=== PATIENT | female | born 1950 | race Caucasian/White ===

== ENCOUNTER → 2016-10-19 | Outpatient (CLI) | payer MEDICARE, OTHER ==
[~2016-10-19] MED LIST: BACTRIM 400 MG-1 TAB PO; BACTRIM DS 8001 TA1 PO; CIPROFLOXACIN500 MG PO; COREG25 MG PO; Coumadin10 MG PO; DIOVAN HCT 12.51 TA1 PO; GABAPENTIN600 MG PO; GABAPENTIN800 MG PO; HYDR25T PO; LOPRESSOR100 MG PO; MELOXICAM7.5 MG PO; NORCO 325 MG-101 TAB PO; TRAMADOL HCL50 MG PO; VENTOLIN H0.09 MG/AC INH; XANAX0.5 MG PO; ZOLOFT50 MG PO
--- NOTE | ~2016-10-19 | PR ---
[place], [place] PROGRESS NOTE NAME: LAVONNE DOWNING [facility] #: [id number] UNIT #: [id number] ROOM: DOCTOR: ZOHAIB GeorgeDUKE BIRTHDATE: [birth year] DOS: 10/19/2016 CHIEF COMPLAINT: Followup of left lower extremity ulcerations. HISTORY OF PRESENT ILLNESS: The location of the wound is the left calf and left anterior leg. The quality is secondary to trauma, wound dehiscence, venous insufficiency, severe lymphedema, morbid obesity and hematoma. The severity is moderate to severe. Duration is approximately 15 weeks. Timing is after she suffered a hematoma and avulsion injury with postop wound dehiscence, large amount of necrotic tissue present. She has a lot of difficulty ambulating secondary to her severe osteoarthritis and obesity. We had tried an Unna boot on her last week; however, she said she could only keep it on for 1 day and had to have it removed the same night. She removed it because it was so uncomfortable, she just could not get her leg in a comfortable position and they did notice that there was increase in the size of the wound of the left anterior leg from before and that wound had been healing quite nicely and was almost closing, however it was noted to be quite large. It is possible that the collagen dressing adhere to it and was possibly caused some tearing of the skin when the dressing was removed, they are not sure if it was from that or from the Unna boot. In any case, she has not been able to use the Unna boot since then. She has no other specific complaints. She continues to have some drainage with the left calf wound. There is really no significant amount of pain. OBJECTIVE: Her vital signs are stable. Blood pressure is 164/90, pulse of 68, respirations 18 and temperature is 98.7. The wound on the anterior leg is measuring quite a lot bigger at 6.8 x 5 x 0.1. It does appear to be related to trauma, possibly from the dressing being sticking to the wound and the surrounding tissue or perhaps irritation from the Unna boot, it is really not clear to me, but it is quite a bit bigger, but fairly superficial. There is no visible necrotic tissue present on that area. There is no sign of cellulitis or purulence or tenderness. The left posterior calf wound is measuring a lot smaller at 2.4 x 3 x 0.1. There is a moderate amount of fibrin slough. There is some slight hypergranulation tissue noted. The surrounding skin looks a lot better, has much improved as far as the excoriation and dry skin. It does appear to be much more healthy appearing. This area was debrided. Fibrin slough and subcutaneous tissue was removed. The patient tolerated the debridement well. Curette was utilized. Cetacaine spray was used for topical anesthesia. Post-debridement measurements are unchanged. Bleeding was controlled with pressure. ASSESSMENT AND PLAN: Chronic left leg ulcerations, the left calf definitely is improving; however, she cannot tolerate the Unna boot and so we will be unable to use it, so I would continue with collagen silver dressing and use Adaptic underneath it to help prevent trauma to the wound and the surrounding skin on both of these wounds for now and have her follow up in one week. Home health is going to be changing the dressing as well and I did advise her to try to keep her legs elevated when she can and will use a Tubigrip for now for compression that is about all that we can use at this point. Followup is in one week. [place], [place] PROGRESS NOTE NAME: LAVONNE DOWNING UNIT #: [id number] ROOM: DOCTOR: DUKE PENNY M.D. BIRTHDATE: [birth year] DUKE PENNY MD CM:JENARO [id number] DUKE PENNY M.D. 10/19/16 1401 interface
== END ==
LOC: WOUNDCARE 01:32
DX: T81.31XD Disruption of external operation (surgical) wound, not elsewhere classified, subsequent encounter (principal); L97.222 Non-pressure chronic ulcer of left calf with fat layer exposed; I87.2 Venous insufficiency (chronic) (peripheral); E66.01 Morbid (severe) obesity due to excess calories; M19.90 Unspecified osteoarthritis, unspecified site; Y83.9 Surgical procedure, unspecified as the cause of abnormal reaction of the patient, or of later complication, without mention of misadventure at the time of the procedure

== ENCOUNTER → 2016-10-25 | Outpatient (CLI) | payer MEDICARE, OTHER ==
--- NOTE | ~2016-10-25 | PR ---
[place], [place] PROGRESS NOTE NAME: LAVONNE DOWNING [facility] #: [id number] UNIT #: [id number] ROOM: DOCTOR: ZOHAIB GeorgeDUKE BIRTHDATE: [birth year] DOS: 10/25/2016 CHIEF COMPLAINT: Followup of left lower extremity ulcerations. HISTORY OF PRESENT ILLNESS: The location of the wounds are the left calf and left anterior leg. The quality is secondary to trauma, wound dehiscence, venous insufficiency, severe lymphedema, morbid obesity, and hematoma. She has been following up in the [facility] for several weeks now, 14 weeks. She has severe debility, ambulating, and is very sedentary due to this and severe osteoarthritis the wounds have been steadily improving gradually and we have made a lot of progress with that; however last week, she had issues with compression. She had an Unna boot on which she only tolerated for one day and had to remove it because of severe discomfort in her leg and she had noticeably increased wound size afterwards in the anterior one. The left calf wound was still healing fairly well. In any case, she comes in today with complaints of increased drainage from both of the leg wounds. She does not have any pain or fevers or chills, but the wounds have gotten much bigger in comparison to the last week. PHYSICAL EXAMINATION: VITAL SIGNS: Stable. Temperature is 98.2, pulse is 80, respirations 18, blood pressure is 154/90. The wound on her anterior lower extremity has tremendously increased in size to 9.1 x 10.5 x 0.1. There is really no overt necrotic tissue. There is a lot more erythema present and around the area and that was not present last week. There is some minimal adherent slough present as well as some dressing material stuck into the wound base. In the left calf, wound is measuring 2.5 x 4.1, it is also bigger in size and 0.1 in depth. There is some hypergranulation tissue and a moderate amount of fibrin slough noted. It is not acutely tender. Debridement was done of the calf wound. This was an excisional debridement. The tissue removed was fibrin slough, Biofilm as well as subcutaneous tissue. Some of the hypergranulation tissue was attempted to be removed. There is still some left after debridement. Post-debridement measurements are unchanged. Silver nitrate was used for the distal part of the hypergranulated area to see if that would help with the hypergranulation. A post-debridement swab culture was taken with the Sanders technique. The left anterior leg wound was debrided. It was a selective debridement. The tissue removed was just minimal nonviable fibrin slough and some adherent dressing material. This was removed with forceps and scissors. All the post-debridement measurements were unchanged. ASSESSMENT AND PLAN: Worsening leg wounds, likely there is probably some wound infection going on. Culture was taken today. We will start the patient on doxycycline 100 twice a day. I would like her to use Iodosorb for now. SHE HAS AN IODINE ALLERGY, but not to topicals. SHE IS ALLERGIC TO CONTRAST MATERIAL. So we tried this with Maxorb and have her change it every other day. We will use a 2 layer Tubigrip, hopefully she can tolerate this at least to help with her tremendous amount of edema. She continues to have a large amount of edema. The patient is to follow up with us in one week. She does have home health to help with dressing changes. I wanted to add that she does take Coumadin and she is going to get her INR checked this Sunday. [place], [place] PROGRESS NOTE NAME: LAVONNE DOWNING UNIT #: [id number] ROOM: DOCTOR: DUKE PENNY M.D. BIRTHDATE: [birth year] DUKE PENNY MD CM:JENARO [id number] DUKE PENNY M.D. 10/26/16 0457 interface
== END | disposition home or self-care (01) ==
LOC: WOUNDCARE 00:46
DX: T81.31XD Disruption of external operation (surgical) wound, not elsewhere classified, subsequent encounter (principal); E11.622 Type 2 diabetes mellitus with other skin ulcer; L97.821 Non-pressure chronic ulcer of other part of left lower leg limited to breakdown of skin; L97.221 Non-pressure chronic ulcer of left calf limited to breakdown of skin; I87.2 Venous insufficiency (chronic) (peripheral); I89.0 Lymphedema, not elsewhere classified; E66.01 Morbid (severe) obesity due to excess calories; Y83.9 Surgical procedure, unspecified as the cause of abnormal reaction of the patient, or of later complication, without mention of misadventure at the time of the procedure

== ENCOUNTER → 2016-11-01 | Outpatient (CLI) | payer MEDICARE, OTHER ==
--- NOTE | ~2016-11-01 | PR ---
[place], [place] PROGRESS NOTE NAME: LAVONNE DOWNING [facility] #: [id number] UNIT #: [id number] ROOM: DOCTOR: ZOHAIB GeorgeDUKE BIRTHDATE: [birth year] DOS: 11/01/2016 This is a wound care followup. CHIEF COMPLAINT: Followup of left lower extremity ulcerations. HISTORY OF PRESENT ILLNESS: The locations of the wounds are the left calf and the left anterior leg. The quality is secondary to trauma, wound dehiscence, venous insufficiency, severe lymphedema, morbid obesity and initially started out as a hematoma that ulcerated and became a very large chronic wound. The wound of the calf has been steadily improving; however, last week, we had some noticeable increase in size of the wound and there was hypergranulation tissue noted. Debridement was done last week with post-debridement culture was obtained. This was positive for multidrug resistant Staph aureus sensitive to Bactrim and Zyvox orally as well as rifampin orally, but no other oral antibiotics except for vancomycin was reported. There was also a new area on the anterior calf that was getting larger as well and that was noted to be increasing in size. It had been steadily improving and getting quite small. However, it just seemed to have gotten worse after Unna boot was placed. She had had Unna boot on for 1 week and it seemed that this really exacerbated it and it became quite large in surface area as well as having a lot of drainage. It remains superficial however. She comes in today. We had started her on empiric doxycycline last week, but she had a reaction to it, which caused a rash and we started her on Iodosorb. She does not tolerate any compression other than a Tubigrip at the moment. The wound on her anterior leg is definitely getting bigger in size and she and her state that they do not have enough dressings as it need frequent dressing changes, but they have been changing it fairly frequently. thinks that it probably needs at least twice a day changed. No fevers or chills or pain is noted at this time. OBJECTIVE: VITAL SIGNS: Shows a blood pressure of 134/80, pulse of 76, respirations 18, temp is 98.4. WOUND EXAMINATION: The wound of the left anterior leg is measuring bigger at 20 x 15 x 0.1. There is really no necrotic tissue. It is moderately erythematous, but it is definitely bigger in dimension. It remains fairly superficial. The wound on the left calf is measuring slightly smaller at 2.5 x 3.7 x 0.1. There is a moderate amount of fibrin slough present in the base of the wound. There is still some maceration noted on the posterior aspect of the calf. Debridement was done of the posterior calf wound. The tissue removed was fibrin slough and subcutaneous tissue. There was a minimal to moderate amount of bleeding. Post-debridement measurements are unchanged. Instrument utilized was a curette. A swab culture was obtained of one of the areas of the left anterior leg wound, which had some active bleeding. This was performed by using the Sanders technique. ASSESSMENT AND PLAN: Worsening leg wounds, likely secondary to possible infection the fact that the wounds are increasing in size and there are large amounts of drainage, I discussed with the patient that we should consider treatment. I am concerned about the Bactrim use; however, and her being on [place], [place] PROGRESS NOTE NAME: LAVONNE DOWNING UNIT #: [id number] ROOM: DOCTOR: DUKE PENNY M.D. BIRTHDATE: [birth year] Coumadin. She says she will get her Coumadin checked on Sunday. She has a pharmacist who manages her Coumadin. She is going to give me the number this afternoon, so I can touch base with her and let her know that the patient will be on antibiotics that may interact with Coumadin. She will need to have her INR checked at least twice a week while she is on antibiotics, possibly more than that if needed. So, the patient is aware of possible drug interaction. She says she has been on Bactrim before in the past, but does not recall if she had been on Coumadin with it or, but has not had a problem with it. In the meantime, the Iodosorb is not helping, so we will not use that and go with the Maxorb silver for now. I will also have her use Dakin's to cleanse the leg with during dressing changes and will use OptiLock as a secondary dressing as I think this might be a little bit more absorptive than the ABD pads at least for now. Followup is early next [place], will use Tubigrip for compression. DUKE PENNY MD CM:JENARO [phone] DUKE PENNY M.D. 11/01/162052 interface
== END ==
LOC: WOUNDCARE 03:50
DX: T81.31XD Disruption of external operation (surgical) wound, not elsewhere classified, subsequent encounter (principal); L97.222 Non-pressure chronic ulcer of left calf with fat layer exposed; L97.821 Non-pressure chronic ulcer of other part of left lower leg limited to breakdown of skin; I87.2 Venous insufficiency (chronic) (peripheral); I89.0 Lymphedema, not elsewhere classified; E66.01 Morbid (severe) obesity due to excess calories; Y83.9 Surgical procedure, unspecified as the cause of abnormal reaction of the patient, or of later complication, without mention of misadventure at the time of the procedure

== ENCOUNTER 2017-04-03 10:36 | Emergency (ER) | payer MEDICARE ==
[~2017-04-03] VITALS: Wt 136.1 kg
[2017-04-03 10:44] VITALS: BP 182/104
[2017-04-03 11:08] LABS: BASO % 0.2 % (0.0-1.0); HEMATOCRIT 35.7 % (37.0-47.0); HEMOGLOBIN 10.4 g/dl (12.0-16.0); IG # 0.1 10*3/uL (0.0-0.1); LYMPH # 1.4 10*3/uL (1.3-4.4); LYMPH % 27.3 % (27.0-41.0); MEAN CELL VOLUME 81.7 fl (81.0-99.0); MEAN CORPUSCULAR HGB 23.8 pg (27.0-31.0); MEAN CORPUSCULAR HGB CONC 29.1 g/dl (33.0-37.0); MEAN PLATELET VOLUME 9.4 fl (9.6-12.3); MONO # 0.7 10*3/uL (0.1-1.0); MONO % 12.4 % (3.0-9.0); NEUT # 3.1 10*3/uL (2.3-7.9); NEUT % 59.1 % (47.0-73.0); PLATELET COUNT AUTOMATED 231 10*3/uL (130-400); RED BLOOD COUNT 4.37 10*6/uL (4.10-5.10); RED CELL DISTRI WIDTH 15.8 % (0-14.5); WHITE BLOOD COUNT 5.2 10*3/uL (4.8-10.8)
[2017-04-03 11:17] LABS: INTERNATIONAL NORM RATIO 1.4 (2.0-3.5); PROTHROMBIN TIME 15.5 SECONDS (9.0-12.4)
[2017-04-03 11:43] LABS: ALBUMIN 2.8 gm/dl (3.1-4.5); ALKALINE PHOSPHATASE 76 U/L (45-117); BILIRUBIN, TOTAL 0.3 mg/dl (0.2-1.0); BUN 28 mg/dl (7-24); C-REACTIVE PROTEIN 5.87 MG/DL (0-0.3); CARBON DIOXIDE 32 mmol/L (21-32); CHLORIDE 102 mmol/L (98-107); CPK 26 U/L (26-192); EST GLOM FILT AFRICAN AMERICAN 45 ml/min; GLUCOSE 143 mg/dL (65-99); MAGNESIUM 2.2 mg/dL (1.5-2.1); POTASSIUM 4.7 mmol/L (3.5-5.1); SGOT/AST 399 IU/L (3-35); SGPT/ALT 256 U/L (12-78); SODIUM 144 mmol/L (136-145)
[2017-04-03 11:44] LABS: CKMB < 0.5 ng/ml (0.5-3.6)
[2017-04-03 11:45] LABS: TROPONIN I 0.549 ng/ml (<0.045)
[2017-04-03 11:51] LABS: BILIRUBIN NEGATIVE (NEGATIVE); BLOOD TRACE-LYSED (NEGATIVE); CLARITY CLOUDY (CLEAR); COLOR YELLOW (YELLOW); GLUCOSE NEGATIVE (NEGATIVE); KETONE NEGATIVE (NEGATIVE); LEUKO ESTERASE NEGATIVE (NEGATIVE); NITRITE NEGATIVE (NEGATIVE); PH 5.5 (5.0-9.0); PROTEIN 2+ (NEGATIVE); SPECIFIC GRAVITY >= 1.030 (1.005-1.030)
[2017-04-03 12:16] VITALS: BP 133/91
[2017-04-03] MEDS ORDERED: DEXAMETHASONE/TO5 ML OPH (12:20)
[2017-04-03] MEDS ORDERED: SERTRALINE HYDR50 MG PO (12:20)
[2017-04-03 12:52] LABS: BACTERIA 2+; EPITHELIAL CELLS 15-20; MUCOUS 2+; URINE REFLEX COMMENT YES (NO)
[2017-04-03 14:32] VITALS: BP 133/83
[2017-04-03 15:39] VITALS: BP 175/98
[2017-04-03 16:54] VITALS: BP 175/100
== END 2017-04-03 17:19 | disposition short-term general hospital (02) ==
LOC: ED 10:36 → EDHOLD 14:40 → ICCU 14:59 → EDHOLD 14:59 → ED 17:19
PROVIDERS: Emergency Medicine
DX: A41.9 Sepsis, unspecified organism (principal); R65.20 Severe sepsis without septic shock; N17.9 Acute kidney failure, unspecified; J96.01 Acute respiratory failure with hypoxia; G93.41 Metabolic encephalopathy; K81.9 Cholecystitis, unspecified; I10 Essential (primary) hypertension; Z88.6 Allergy status to analgesic agent; Z79.899 Other long term (current) drug therapy; Z79.02 Long term (current) use of antithrombotics/antiplatelets

== ENCOUNTER 2017-09-22 19:23 | Emergency (ER) | payer MEDICARE ==
[~2017-09-22] VITALS: Ht 177.8 cm; Wt 127.0 kg
[~2017-09-22 19:23] MED LIST changes: +DEXAMETHASONE/TO5 ML OPH; +SERTRALINE HYDR50 MG PO
[2017-09-22 20:14] LABS: BASO # 0.1 10*3/uL (0.0-0.1); BASO % 0.7 % (0.0-1.0); EOS # 0.4 10*3/uL (0.0-0.4); EOS % 5.7 % (1.0-4.0); HEMATOCRIT 32.9 % (37.0-47.0); LYMPH # 1.3 10*3/uL (1.3-4.4); LYMPH % 17.1 % (27.0-41.0); MEAN CELL VOLUME 78.1 fl (81.0-99.0); MEAN CORPUSCULAR HGB 23.8 pg (27.0-31.0); MEAN CORPUSCULAR HGB CONC 30.4 g/dl (33.0-37.0); MONO # 0.7 10*3/uL (0.1-1.0); MONO % 9.5 % (3.0-9.0); NEUT # 5.1 10*3/uL (2.3-7.9); NEUT % 66.5 % (47.0-73.0); PLATELET COUNT AUTOMATED 307 10*3/uL (130-400); RED BLOOD COUNT 4.21 10*6/uL (4.10-5.10); RED CELL DISTRI WIDTH 16.6 % (0-14.5); WHITE BLOOD COUNT 7.7 10*3/uL (4.8-10.8)
[2017-09-22 20:30] LABS: ALBUMIN 2.9 gm/dl (3.1-4.5); ALKALINE PHOSPHATASE 98 U/L (45-117); BUN 16 mg/dl (7-24); CHLORIDE 102 mmol/L (98-107); CREATININE 1.08 mg/dL (0.55-1.02); SGOT/AST 13 IU/L (3-35); SGPT/ALT 12 U/L (12-78); SODIUM 137 mmol/L (136-145); TOTAL PROTEIN 7.6 gm/dL (6.4-8.2)
[2017-09-22 20:41] LABS: ACT PARTIAL THROMBO TIME 51.5 SECONDS (20.8-31.5)
[2017-09-22 20:45] LABS: INTERNATIONAL NORM RATIO 4.8 (2.0-3.5)
== END 2017-09-22 22:16 | disposition home or self-care (01) ==
LOC: ED 19:23
PROVIDERS: Nurse Practitioner
DX: R03.0 Elevated blood-pressure reading, without diagnosis of hypertension (principal); Z88.6 Allergy status to analgesic agent; Z91.040 Latex allergy status; Z91.041 Radiographic dye allergy status; Z79.899 Other long term (current) drug therapy; Z90.710 Acquired absence of both cervix and uterus

== ENCOUNTER 2017-11-03 23:03 | Emergency (ER) | payer MEDICARE ==
[~2017-11-03] VITALS: Wt 127.0 kg
--- NOTE | ~2017-11-03 | EKG ---
[place], [place] ELECTROCARDIOGRAM REPORT NAME: LAVONNE DOWNING UNIT #: [id number] ROOM: DOCTOR: SERJIO BLISS MD BIRTHDATE: [birth year] DOS: 11/04/2017 TIME: 008 hours. Normal sinus rhythm at 67 beats per minute. J-point elevation is noted. The minimal criteria for LVH is present. No previous tracing is available for comparison. SERJIO BLISS MD CM:EKGRPT:ELECTROCARDIOGRAM REPORT [id number] SERJIO BLISS MD
[2017-11-03 23:38] LABS: BASO # 0.1 10*3/uL (0.0-0.1); BASO % 0.7 % (0.0-1.0); EOS # 0.3 10*3/uL (0.0-0.4); EOS % 4.6 % (1.0-4.0); HEMATOCRIT 34.6 % (37.0-47.0); HEMOGLOBIN 10.4 g/dl (12.0-16.0); LYMPH # 1.4 10*3/uL (1.3-4.4); LYMPH % 19.2 % (27.0-41.0); MEAN CELL VOLUME 79.9 fl (81.0-99.0); MEAN CORPUSCULAR HGB CONC 30.1 g/dl (33.0-37.0); MEAN PLATELET VOLUME 9.4 fl (9.6-12.3); MONO # 0.7 10*3/uL (0.1-1.0); MONO % 9.5 % (3.0-9.0); NEUT # 4.7 10*3/uL (2.3-7.9); NEUT % 65.6 % (47.0-73.0); PLATELET COUNT AUTOMATED 216 10*3/uL (130-400); RED BLOOD COUNT 4.33 10*6/uL (4.10-5.10); RED CELL DISTRI WIDTH 16.4 % (0-14.5); WHITE BLOOD COUNT 7.1 10*3/uL (4.8-10.8)
[2017-11-03 23:48] LABS: ACT PARTIAL THROMBO TIME 30.4 SECONDS (20.8-31.5); INTERNATIONAL NORM RATIO 1.4 (2.0-3.5)
[2017-11-03 23:55] LABS: ALBUMIN 2.9 gm/dl (3.1-4.5); ALKALINE PHOSPHATASE 112 U/L (45-117); BUN 23 mg/dl (7-24); CHLORIDE 104 mmol/L (98-107); CREATININE 1.09 mg/dL (0.55-1.02); POTASSIUM 4.1 mmol/L (3.5-5.1); SGOT/AST 13 IU/L (3-35); SGPT/ALT 12 U/L (12-78); SODIUM 141 mmol/L (136-145); TOTAL PROTEIN 7.2 gm/dL (6.4-8.2)
[2017-11-04] LABS: TROPONIN I < 0.015 ng/ml (<0.045)
[2017-11-04 00:46] LABS: BILIRUBIN NEGATIVE (NEGATIVE); BLOOD 3+ (NEGATIVE); CLARITY SL CLOUDY (CLEAR); COLOR YELLOW (YELLOW); GLUCOSE NEGATIVE (NEGATIVE); KETONE NEGATIVE (NEGATIVE); LEUKO ESTERASE 2+ (NEGATIVE); NITRITE POSITIVE (NEGATIVE); PH 6.5 (5.0-9.0); UROBILINOGEN 0.2 E.U./dl (0.2-1.0)
[2017-11-04 01:00] LABS: RBC 21-30 rbc/hpf (0-2); WBC 31-40 wbc/hpf (0-5)
[2017-11-04 01:02] LABS: BACTERIA 3+
[2017-11-04] MEDS ORDERED: MACROBID100 M1 PO (02:11)
== END 2017-11-04 03:00 | disposition home or self-care (01) ==
LOC: ED 23:03
PROVIDERS: Emergency Medicine Emergency Medical Services
DX: I10 Essential (primary) hypertension (principal); N39.0 Urinary tract infection, site not specified; M79.7 Fibromyalgia; Z90.710 Acquired absence of both cervix and uterus; Z98.890 Other specified postprocedural states; Z79.899 Other long term (current) drug therapy; Z79.01 Long term (current) use of anticoagulants; Z88.5 Allergy status to narcotic agent; Z91.040 Latex allergy status

== ENCOUNTER 2017-12-28 22:35 | Emergency (ER) | payer MEDICARE, OTHER ==
[~2017-12-28] VITALS: Ht 170.1 cm; Wt 127.0 kg
[~2017-12-28 22:35] MED LIST changes: +MACROBID100 M1 PO
[2017-12-28 23:28] LABS: BASO % 0.6 % (0.0-1.0); EOS # 0.2 10*3/uL (0.0-0.4); EOS % 3.6 % (1.0-4.0); HEMATOCRIT 37.2 % (37.0-47.0); HEMOGLOBIN 11.3 g/dl (12.0-16.0); LYMPH # 1.2 10*3/uL (1.3-4.4); LYMPH % 22.7 % (27.0-41.0); MEAN CELL VOLUME 80.3 fl (81.0-99.0); MEAN CORPUSCULAR HGB 24.4 pg (27.0-31.0); MEAN CORPUSCULAR HGB CONC 30.4 g/dl (33.0-37.0); MEAN PLATELET VOLUME 9.4 fl (9.6-12.3); MONO # 0.6 10*3/uL (0.1-1.0); MONO % 11.1 % (3.0-9.0); NEUT # 3.1 10*3/uL (2.3-7.9); NEUT % 61.4 % (47.0-73.0); PLATELET COUNT AUTOMATED 188 10*3/uL (130-400); RED BLOOD COUNT 4.63 10*6/uL (4.10-5.10); WHITE BLOOD COUNT 5.1 10*3/uL (4.8-10.8)
[2017-12-28 23:35] LABS: BILIRUBIN NEGATIVE (NEGATIVE); BLOOD 1+ (NEGATIVE); CLARITY SL CLOUDY (CLEAR); COLOR YELLOW (YELLOW); GLUCOSE NEGATIVE (NEGATIVE); KETONE NEGATIVE (NEGATIVE); LEUKO ESTERASE 1+ (NEGATIVE); NITRITE POSITIVE (NEGATIVE); PH 6.5 (5.0-9.0); UROBILINOGEN 0.2 E.U./dl (0.2-1.0)
[2017-12-28 23:35] LABS: INTERNATIONAL NORM RATIO 1.6 (2.0-3.5)
[2017-12-28 23:40] LABS: BACTERIA 4+
[2017-12-28 23:41] LABS: WBC 31-40 wbc/hpf (0-5)
[2017-12-28 23:43] LABS: ALBUMIN 3.1 gm/dl (3.1-4.5); ALKALINE PHOSPHATASE 128 U/L (45-117); BUN 17 mg/dl (7-24); CHLORIDE 101 mmol/L (98-107); CREATININE 0.94 mg/dL (0.55-1.02); LIPASE 73 U/L (73-393); SGOT/AST 11 IU/L (3-35); SGPT/ALT 12 U/L (12-78); SODIUM 139 mmol/L (136-145); TOTAL PROTEIN 7.4 gm/dL (6.4-8.2)
[2017-12-28 23:44] LABS: TROPONIN I < 0.015 ng/ml (<0.045)
[2017-12-29] MEDS ORDERED: CEFUROXIME AXE250 MG PO (01:02)
== END 2017-12-29 01:06 | disposition home or self-care (01) ==
LOC: ED 22:35
PROVIDERS: Emergency Medicine Emergency Medical Services
DX: I10 Essential (primary) hypertension (principal); N39.0 Urinary tract infection, site not specified; Z90.710 Acquired absence of both cervix and uterus; Z79.01 Long term (current) use of anticoagulants; Z88.5 Allergy status to narcotic agent; Z91.040 Latex allergy status

== ENCOUNTER 2018-09-29 19:48 | Emergency (ER) | payer MEDICARE ==
[~2018-09-29] VITALS: Ht 177.8 cm; Wt 127.0 kg
--- NOTE | ~2018-09-29 | EKG ---
[place], [place] ELECTROCARDIOGRAM REPORT NAME: LAVONNE DOWNING UNIT #: [id number] ROOM: DOCTOR: EPIPHANY DRAFT REPORT BIRTHDATE: [birth year] [facility] Test Date: 2018-09-29 Test Time: 20:17:43 Pat Name: LAVONNE DOWNING Department: Room: Gender: F Roofer Assistant: RINA : 1950 Requested By: JAVAD LR PA-C Order Number: [id number] Reading MD: James Lin MD Measurements Intervals [place] Rate: 70 P: 10 ID: [id number] QRS: 33 QRSD: 97 T: 60 QT: 415 QTc: 448 Interpretive Statements Sinus rhythm Electronically Signed On 09-30-2018 7:53:51 PST by James Lin MD CM:EKGRPT:ELECTROCARDIOGRAM REPORT [id number] JAVAD LR PA-C EPIPHANY DRAFT REPORT JAVAD LR PA-C
[~2018-09-29 19:48] MED LIST changes: +CEFUROXIME AXE250 MG PO
[2018-09-29 20:15] LABS: BASO # 0.1 10*3/uL (0.0-0.1); BASO % 0.8 % (0.0-1.0); EOS # 0.2 10*3/uL (0.0-0.4); EOS % 3.6 % (1.0-4.0); HEMATOCRIT 40.4 % (37.0-47.0); HEMOGLOBIN 12.5 g/dl (12.0-16.0); LYMPH # 1.2 10*3/uL (1.3-4.4); LYMPH % 17.5 % (27.0-41.0); MEAN CORPUSCULAR HGB 25.7 pg (27.0-31.0); MEAN CORPUSCULAR HGB CONC 30.9 g/dl (33.0-37.0); MONO # 0.6 10*3/uL (0.1-1.0); MONO % 8.3 % (3.0-9.0); NEUT # 4.6 10*3/uL (2.3-7.9); NEUT % 69.2 % (47.0-73.0); PLATELET COUNT AUTOMATED 201 10*3/uL (130-400); RED BLOOD COUNT 4.87 10*6/uL (4.10-5.10); WHITE BLOOD COUNT 6.6 10*3/uL (4.8-10.8)
[2018-09-29 20:32] LABS: ALBUMIN 3.1 gm/dl (3.1-4.5); ALKALINE PHOSPHATASE 155 U/L (45-117); BUN 16 mg/dl (7-24); CHLORIDE 99 mmol/L (98-107); CREATININE 1.13 mg/dL (0.55-1.02); POTASSIUM 4.1 mmol/L (3.5-5.1); SGOT/AST 10 IU/L (3-35); SGPT/ALT 13 U/L (12-78); SODIUM 138 mmol/L (136-145); TOTAL PROTEIN 7.2 gm/dL (6.4-8.2)
[2018-09-29 20:47] LABS: TROPONIN I < 0.015 ng/ml (<0.045)
[2018-09-29 20:59] LABS: BILIRUBIN NEGATIVE (NEGATIVE); BLOOD TRACE-INTACT (NEGATIVE); CLARITY CLOUDY (CLEAR); COLOR YELLOW (YELLOW); GLUCOSE NEGATIVE (NEGATIVE); KETONE NEGATIVE (NEGATIVE); LEUKO ESTERASE NEGATIVE (NEGATIVE); NITRITE NEGATIVE (NEGATIVE); SPECIFIC GRAVITY 1.015 (1.005-1.030); UROBILINOGEN 0.2 E.U./dl (0.2-1.0)
[2018-09-29 21:09] LABS: BACTERIA 1+; WBC 0-2 wbc/hpf (0-5)
[2018-09-29 21:19] LABS: ACT PARTIAL THROMBO TIME 36.7 SECONDS (20.8-31.5); INTERNATIONAL NORM RATIO 2.2 (2.0-3.5)
[2018-09-29] MEDS ORDERED: AMINOPHYLLIN200 MG PO (21:22)
== END 2018-09-29 21:21 | disposition home or self-care (01) ==
LOC: ED 19:48
PROVIDERS: Physician Assistant
DX: R35.0 Frequency of micturition (principal); I10 Essential (primary) hypertension; R30.0 Dysuria; R51 Headache; Z86.718 Personal history of other venous thrombosis and embolism; Z79.01 Long term (current) use of anticoagulants; Z88.5 Allergy status to narcotic agent; Z91.041 Radiographic dye allergy status; Z91.040 Latex allergy status; Z79.2 Long term (current) use of antibiotics; Z79.899 Other long term (current) drug therapy; Z90.710 Acquired absence of both cervix and uterus

== ENCOUNTER 2019-03-31 20:10 | Emergency (ER) | payer OTHER, MEDICARE ==
[~2019-03-31] VITALS: Ht 177.8 cm; Wt 148.3 kg
[~2019-03-31 20:10] MED LIST changes: +AMINOPHYLLIN200 MG PO
[2019-04-02] MEDS ORDERED: AUGMENTIN 875875 MG PO (17:11)
[2019-04-02] MEDS ORDERED: AMLODIPINE BESYL5 MG PO (17:12)
[2019-04-02] MEDS ORDERED: CLONIDINE HCL0.3 MG PO (17:13)
[2019-04-02] MEDS ORDERED: LISINOPRIL40 MG PO (17:13)
[2019-04-02] MEDS ORDERED: PAMELOR25 MG PO (17:22)
[2019-04-02] MEDS ORDERED: PREMARIN30 GM V (17:23)
[2019-04-02] MEDS ORDERED: TEARS NATURALE,15 ML OPH (17:24)
[2019-04-09] MEDS ORDERED: CEFTRIAXONE1 GM IJ (15:13)
== END 2019-04-01 00:30 | disposition home or self-care (01) ==
LOC: ED 20:10
DX: S70.01XA Contusion of right hip, initial encounter (principal); I10 Essential (primary) hypertension; J45.909 Unspecified asthma, uncomplicated; E66.01 Morbid (severe) obesity due to excess calories; Z88.6 Allergy status to analgesic agent; Z91.040 Latex allergy status; Z79.899 Other long term (current) drug therapy; Z79.01 Long term (current) use of anticoagulants; W01.0XXA Fall on same level from slipping, tripping and stumbling without subsequent striking against object, initial encounter; Y93.89 Activity, other specified; Y92.098 Other place in other non-institutional residence as the place of occurrence of the external cause; Y99.8 Other external cause status

== ENCOUNTER 2020-07-20 16:47 | Inpatient (IN) | payer MEDICARE, OTHER ==
[~2020-07-20] VITALS: Ht 177.8 cm; Wt 148.6 kg
--- NOTE | 2020-07-20 19:00 | NUR ---
REPORT OBTAINED FROM PRIOR RN. PT EDWIN SHEPHERD.
--- NOTE | 2020-07-20 19:45 | NUR ---
PT RESTING QUIETLY NO DISTRESS DENIES PAIN.
--- NOTE | 2020-07-20 20:15 | NUR ---
ROOM ASSIGNMENT OBTAINED. PT RESTING QUIETLY NO DISTRESS BIPAP IN PLACE PER RESPIRATORY. NO ACUTE DISTRESS. RN TO GIVE BEDSIDE REPORT UPON TAKING PATIENT TO FLOOR
[2020-07-20 20:40] VITALS: BP 154/97
--- NOTE | 2020-07-20 20:40 | NUR ---
A 70, admitted to 5E, under the services of MIKY Kolb DO with a diagnosis of HYPOXIA. Chief complaint is SHORTNESS OF BREATH. Patient arrived via stretcher from ER. Monitor applied. Initial assessment completed. Vital signs taken and recorded. MIKY KOLB DO notified of admission to the unit. Orders received. See assessment for past medical history, medications and allergies. Patient and/or family oriented to unit. visitation policy reviewed. Clothing/patient valuable form completed. BENITEZ LYNN
--- NOTE | 2020-07-20 20:42 | NUR ---
PT TRANSPORTED TO FLOOR MONITORED
--- NOTE | 2020-07-20 21:31 | NUR ---
DR. VELOZ'S ANSWERING SERVICE NOTIFIED OF NEW CONSULT.
--- NOTE | 2020-07-20 21:36 | NUR ---
DR. SERRANO NOTIFIED OF CONSULT. ABG'S IN AM AND CHANGE BIPAP SETTINGS TO 25/07.
--- NOTE | 2020-07-21 07:51 | NUR ---
PODIATRY NOTIFIED OF CONSULT.
--- NOTE | 2020-07-21 08:50 | NUR ---
PRASHANTH SALAZAR TAKEN OFF LLE FOR SCHEDULED U/S. PODIATRY MADE AWARE.
--- NOTE | 2020-07-21 09:00 | NUR ---
PATIENT TAKEN OFF FLOOR FOR SCHEDULED U/S.
--- NOTE | 2020-07-21 15:35 | NUR ---
Dispensing Operator in to talk to patient. Patient states lives at HOME with AND SON. There are NO steps in the home. Physician: JUDITH [facility] Home health services: [facility] Patient's level of ADLs: MINIMAL ASSIST Patient has working utilities: YES DME: OXYGEN, CPAP, ELECTRIC WHEELCHAIR Follow-up physician's appointment after d/c: WILL BE MADE BY HOSPITALIST NURSE DIRECTOR ON DISCHARGE Does patient want to access PORTAL?: NO Discharge plan PT LIVES AT HOME WITH HER AND SON. STATES SHE HAS HOME OXYGEN, A CPAP, AND ELECTRIC WHEELCHAIR. SHE ALSO HAS [facility] SERVICES. STATES HER PLAN IS RETURN HOME WHEN MEDICALY STABLE WITH RESUMPTION OF [facility]. WILL CONTINUE TO FOLLOW. STATES HER FAMILY WILL TAKE HER HOME.. [place]
--- NOTE | 2020-07-21 16:00 | NUR ---
Patient resting quietly with no c/o discomfort. Respirations easy and regular. Vital signs stable. No overt distress. TITA TAYLOR
--- NOTE | 2020-07-21 16:44 | NUR ---
PT. WAS ON BIPAP FROM 1150 TO 1545. TOERATED WELL. PT. ON NC AT 3L.
--- NOTE | 2020-07-21 22:55 | NUR ---
Pt placed on BiPap 18/10 and FiO2 40%. Alarms on and audible.
--- NOTE | 2020-07-22 06:48 | NUR ---
DR. QUISPE NOTIFIED OF CRITICAL CARBON DIOXIDE LEVEL OF 43.
--- NOTE | 2020-07-22 08:11 | NUR ---
NOTIFIED REGARDING RECENT ABG RESULTS. NEW ORDERS RECEIVED.
--- NOTE | 2020-07-22 08:13 | NUR ---
RESPIRATORY THERAPIST INFORMED REGARDING OXYGEN CHECK ON ROOM AIR.
--- NOTE | 2020-07-22 08:34 | NUR ---
PULSE OX CHECKED ON ROOM AIR PER ORDER. POX 85% VIA ROOM AIR. 02 APPLIED VIA 3LNC. POX NOW 93%. WILL CONTINUE TO MONITOR. PATIENT TO BE TAKEN DOWN FOR SCHEDULED CXR.
--- NOTE | 2020-07-22 09:25 | NUR ---
IN TO SEE PATIENT.
--- NOTE | 2020-07-22 12:44 | NUR ---
PT STATES SHE WILL RETURN HOME WITH SON AND ON DISCHARGE. STATES SHE HAS ALL THE EQUIPMENT SHE NEEDS. WILL RESUME [facility] ON DISCHARGE. WILL CONTINUE TO FOLLOW.
--- NOTE | 2020-07-22 13:15 | NUR ---
PT PLACED ON BIPAP FOR AFTERNOON NAP. SYSTEM CHECKED AND FX'IN. RESPS REGULAR AND UNLABORED. PRIOR TO BIPAP, PT WAS ON RA (CANNULA ON BUT PRONGS NOT IN NOSTRILS) AND SPO2 WAS 82% ON RA. SPO2 INCREASED TO 91% ON 2 L NC PRIOT TO BIPAP.
--- NOTE | 2020-07-22 13:33 | NUR ---
BIPAP IN USE. PATIENT TOLERATING WELL.
--- NOTE | 2020-07-22 16:30 | NUR ---
PATIENT RESTING COMFORTABLY IN BED. NO DISTRESS NOTED. 02 IN USE VIA 3LNC. POX 95% VIA 3L. LUNGS DIMINISHED T/O. NON-PRODUCTIVE COUGH PER PT. LAI INTACT DRAINING STRAW COLORED URINE. BLLE WRAPS D/I. WILL CONTINUE TO MONITOR. CALL LIGHT WITHIN REACH.
--- NOTE | 2020-07-23 11:20 | NUR ---
PT ASSESSED FOR HOME O2. PT UNABLE TO AMBULATE. ASESSMENT COMPLETED WITH PT AT REST. SPO2 RA AT REST: 85% HR 70 SPO2 2 L NC AT REST: 95% HR 70 PT QUALIFIES FOR HOME O2 WHILE AT REST. PT STATES SHE HAS HOME O2 AT THIS TIME. INITIAL O2 SET UP NOT REQUIRED. RN NOTIFIED AND AWARE.
--- NOTE | 2020-07-23 11:34 | NUR ---
PT LIVES AT HOME WITH HER AND SON. CURRENTLY ACTIVE WITH [facility]. PT WANTS TO RETURN HOME WITH RESUMPTION OF [facility]. WILL CONTINUE TO FOLLOW.
[2020-07-23 12:00] VITALS: BP 117/68
--- NOTE | 2020-07-23 14:46 | NUR ---
PHYSICAL THERAPY Per medical meeting this AM pt to be discharged home and currently has discharge orders in will defer therapy at this time as pt being discharged today. Anne-Marie Contreras PT
--- NOTE | 2020-07-23 16:32 | NUR ---
[facility] Discharge instructions reviewed with patient/family. Patient receptive and verbalizes understanding. Follow-up care arranged. Written instructions given to patient/family. SRIRAM FIGUEROA
== END 2020-07-23 17:16 | disposition home health service (06) | DRG 291 ==
LOC: ED 16:47 → EDHOLD 19:53 → 5E 19:53
PROVIDERS: ADMIT Internal Medicine; ATTEND Internal Medicine
PROC: 5A09357 Assistance with Respiratory Ventilation, Less than 24 Consecutive Hours, Continuous Positive Airway Pressure (ICD-10-PCS; principal; 2020-07-22)
PROC: 5A09357 Assistance with Respiratory Ventilation, Less than 24 Consecutive Hours, Continuous Positive Airway Pressure (ICD-10-PCS; 2020-07-23)
DX: I11.0 Hypertensive heart disease with heart failure (principal); J96.22 Acute and chronic respiratory failure with hypercapnia; I50.31 Acute diastolic (congestive) heart failure; J96.21 Acute and chronic respiratory failure with hypoxia; J45.901 Unspecified asthma with (acute) exacerbation; E87.2 Acidosis; J44.1 Chronic obstructive pulmonary disease with (acute) exacerbation; Z68.42 Body mass index [BMI] 45.0-49.9, adult; Z95.828 Presence of other vascular implants and grafts; M79.7 Fibromyalgia; F32.9 Major depressive disorder, single episode, unspecified; M19.90 Unspecified osteoarthritis, unspecified site; I89.0 Lymphedema, not elsewhere classified; E66.01 Morbid (severe) obesity due to excess calories; M41.80 Other forms of scoliosis, site unspecified; G47.33 Obstructive sleep apnea (adult) (pediatric); E11.40 Type 2 diabetes mellitus with diabetic neuropathy, unspecified; E11.65 Type 2 diabetes mellitus with hyperglycemia; R79.1 Abnormal coagulation profile; L89.150 Pressure ulcer of sacral region, unstageable; Z88.6 Allergy status to analgesic agent; Z91.041 Radiographic dye allergy status; Z91.040 Latex allergy status; Z98.49 Cataract extraction status, unspecified eye; Z90.710 Acquired absence of both cervix and uterus; Z82.49 Family history of ischemic heart disease and other diseases of the circulatory system; Z84.2 Family history of other diseases of the genitourinary system; Z86.718 Personal history of other venous thrombosis and embolism

== ENCOUNTER 2021-05-19 14:35 | Emergency (ER) | payer MEDICARE, OTHER ==
[~2021-05-19] VITALS: Ht 177.8 cm; Wt 127.0 kg
[~2021-05-19 14:35] MED LIST changes: +ALDACTONE25 M1 PO; +AMLODIPINE BESYL5 MG PO; +AUGMENTIN 875875 MG PO; +CEFTRIAXONE1 GM IJ; +CLONIDINE HCL0.3 MG PO; +COLACE100 MG PO; +Coumadin7.5 MG PO; +LASIX40 MG PO; +LISINOPRIL40 MG PO; +NORTRIPTYLINE H25 M1 PO; +PAMELOR25 MG PO; +PREMARIN30 GM V; +TEARS NATURALE,15 ML OPH; +WARFARIN SODIUM10 MG PO
[2021-05-19] MEDS ORDERED: CEPHALEXIN500 M1 PO (17:41)
== END 2021-05-19 17:51 | disposition home or self-care (01) ==
LOC: ED 14:35
DX: S51.812A Laceration without foreign body of left forearm, initial encounter (principal); J44.9 Chronic obstructive pulmonary disease, unspecified; Z79.01 Long term (current) use of anticoagulants; Z88.5 Allergy status to narcotic agent; Z91.041 Radiographic dye allergy status; Z91.040 Latex allergy status; Z79.899 Other long term (current) drug therapy; Z90.711 Acquired absence of uterus with remaining cervical stump; W22.8XXA Striking against or struck by other objects, initial encounter; Y93.89 Activity, other specified; Y92.89 Other specified places as the place of occurrence of the external cause; Y99.8 Other external cause status

== ENCOUNTER → 2021-05-23 | Outpatient (CLI) | payer MEDICARE, OTHER ==
[~2021-05-23] MED LIST changes: +CEPHALEXIN500 M1 PO
== END ==
LOC: WOUNDCARE 01:04
PROVIDERS: ATTEND Nurse Practitioner
DX: S51.812A Laceration without foreign body of left forearm, initial encounter (principal); J44.9 Chronic obstructive pulmonary disease, unspecified; Z90.710 Acquired absence of both cervix and uterus; Z98.890 Other specified postprocedural states; Z98.49 Cataract extraction status, unspecified eye; Z79.899 Other long term (current) drug therapy; Z79.01 Long term (current) use of anticoagulants; W22.8XXA Striking against or struck by other objects, initial encounter; Y93.89 Activity, other specified; Y92.89 Other specified places as the place of occurrence of the external cause; Y99.8 Other external cause status

== ENCOUNTER 2021-05-26 17:12 | Emergency (ER) | payer MEDICARE, OTHER ==
[~2021-05-26] VITALS: Ht 167.6 cm; Wt 111.1 kg
[2021-05-26 22:04] LABS: BASO % 0.6 % (0.0-1.0); EOS # 0.2 10*3/uL (0.0-0.4); EOS % 3.5 % (1.0-4.0); HEMATOCRIT 35.9 % (37.0-47.0); LYMPH # 0.9 10*3/uL (1.3-4.4); MEAN CELL VOLUME 86.3 fl (81.0-99.0); MEAN CORPUSCULAR HGB 26.4 pg (27.0-31.0); MEAN CORPUSCULAR HGB CONC 30.6 g/dl (33.0-37.0); MEAN PLATELET VOLUME 8.8 fl (9.6-12.3); MONO # 0.5 10*3/uL (0.1-1.0); MONO % 8.1 % (3.0-9.0); NEUT # 4.8 10*3/uL (2.3-7.9); NEUT % 73.6 % (47.0-73.0); PLATELET COUNT AUTOMATED 187 10*3/uL (130-400); RED BLOOD COUNT 4.16 10*6/uL (4.10-5.10); WHITE BLOOD COUNT 6.6 10*3/uL (4.8-10.8)
[2021-05-26 22:14] LABS: ALBUMIN 3.1 gm/dl (3.1-4.5); ALKALINE PHOSPHATASE 120 U/L (45-117); BUN 18 mg/dl (7-24); CHLORIDE 100 mmol/L (98-107); CREATININE 0.84 mg/dL (0.55-1.02); POTASSIUM 4.3 mmol/L (3.5-5.1); SGOT/AST 14 IU/L (3-35); SGPT/ALT 25 U/L (12-78); SODIUM 139 mmol/L (136-145); TOTAL PROTEIN 7.2 gm/dL (6.4-8.2)
== END 2021-05-27 | disposition home or self-care (01) ==
LOC: ED 17:12
PROVIDERS: Emergency Medicine
DX: T46.4X1A Poisoning by angiotensin-converting-enzyme inhibitors, accidental (unintentional), initial encounter (principal); I10 Essential (primary) hypertension; Z88.6 Allergy status to analgesic agent; Z91.040 Latex allergy status; Z79.899 Other long term (current) drug therapy; Y92.89 Other specified places as the place of occurrence of the external cause

== ENCOUNTER → 2021-06-01 | Outpatient (CLI) | payer MEDICARE, OTHER | LOC: WOUNDCARE 00:26 | PROVIDERS: ATTEND Nurse Practitioner | DX: S51.812D Laceration without foreign body of left forearm, subsequent encounter (principal); J44.9 Chronic obstructive pulmonary disease, unspecified; Z90.710 Acquired absence of both cervix and uterus; Z98.890 Other specified postprocedural states; Z98.49 Cataract extraction status, unspecified eye; Z79.899 Other long term (current) drug therapy; Z79.01 Long term (current) use of anticoagulants; W22.8XXD Striking against or struck by other objects, subsequent encounter ==

== ENCOUNTER 2021-07-12 21:48 | Emergency (ER) | payer MEDICARE, OTHER ==
[2021-07-12 22:40] LABS: BASO % 0.3 % (0.0-1.0); EOS # 0.2 10*3/uL (0.0-0.4); EOS % 3.1 % (1.0-4.0); HEMATOCRIT 38.3 % (37.0-47.0); LYMPH % 12.6 % (27.0-41.0); MEAN CELL VOLUME 86.1 fl (81.0-99.0); MEAN CORPUSCULAR HGB 26.1 pg (27.0-31.0); MEAN CORPUSCULAR HGB CONC 30.3 g/dl (33.0-37.0); MONO # 0.7 10*3/uL (0.1-1.0); MONO % 9.3 % (3.0-9.0); NEUT # 5.5 10*3/uL (2.3-7.9); NEUT % 73.6 % (47.0-73.0); PLATELET COUNT AUTOMATED 182 10*3/uL (130-400); RED BLOOD COUNT 4.45 10*6/uL (4.10-5.10); RED CELL DISTRI WIDTH 13.7 % (0-14.5); WHITE BLOOD COUNT 7.5 10*3/uL (4.8-10.8)
[2021-07-12 22:51] LABS: INTERNATIONAL NORM RATIO 2.5 (2.0-3.5)
== END 2021-07-13 01:33 | disposition home or self-care (01) ==
LOC: ED 21:48
PROVIDERS: Emergency Medicine
DX: T45.511A Poisoning by anticoagulants, accidental (unintentional), initial encounter (principal); Z91.040 Latex allergy status; Z88.6 Allergy status to analgesic agent; Z79.899 Other long term (current) drug therapy; Y92.89 Other specified places as the place of occurrence of the external cause

== ENCOUNTER 2021-07-28 17:10 | Emergency (ER) | payer MEDICARE, OTHER ==
[~2021-07-28] VITALS: Ht 177.8 cm; Wt 127.0 kg
== END 2021-07-28 19:02 | disposition home or self-care (01) ==
LOC: ED 17:10
DX: S81.812A Laceration without foreign body, left lower leg, initial encounter (principal); W22.8XXA Striking against or struck by other objects, initial encounter; Y93.89 Activity, other specified; Y92.89 Other specified places as the place of occurrence of the external cause; Y99.8 Other external cause status

== ENCOUNTER → 2021-07-29 | Outpatient (CLI) | payer MEDICARE, OTHER | LOC: WOUNDCARE 09:01 | PROVIDERS: ATTEND Nurse Practitioner Family | DX: S51.812D Laceration without foreign body of left forearm, subsequent encounter (principal); L97.811 Non-pressure chronic ulcer of other part of right lower leg limited to breakdown of skin; D48.9 Neoplasm of uncertain behavior, unspecified; R22.41 Localized swelling, mass and lump, right lower limb; J44.9 Chronic obstructive pulmonary disease, unspecified; R32 Unspecified urinary incontinence; Z90.710 Acquired absence of both cervix and uterus; Z98.890 Other specified postprocedural states; Z98.49 Cataract extraction status, unspecified eye; Z79.899 Other long term (current) drug therapy; Z79.01 Long term (current) use of anticoagulants; Z79.51 Long term (current) use of inhaled steroids; W22.8XXA Striking against or struck by other objects, initial encounter; Y93.89 Activity, other specified; Y92.89 Other specified places as the place of occurrence of the external cause; Y99.8 Other external cause status ==

== ENCOUNTER → 2021-08-09 | Outpatient (CLI) | payer MEDICARE, OTHER ==
[~2021-08-09] MED LIST changes: +CIPRO500 MG PO; +DULOXETINE HCL30 MG PO; -NORTRIPTYLINE H25 M1 PO; +NORTRIPTYLINE H50 M2 PO
== END ==
LOC: WOUNDCARE 01:29
PROVIDERS: ATTEND Surgery
DX: S51.812D Laceration without foreign body of left forearm, subsequent encounter (principal); S81.812D Laceration without foreign body, left lower leg, subsequent encounter; L97.812 Non-pressure chronic ulcer of other part of right lower leg with fat layer exposed; D48.9 Neoplasm of uncertain behavior, unspecified; R22.41 Localized swelling, mass and lump, right lower limb; J44.9 Chronic obstructive pulmonary disease, unspecified; R32 Unspecified urinary incontinence; Z90.710 Acquired absence of both cervix and uterus; Z98.890 Other specified postprocedural states; Z98.49 Cataract extraction status, unspecified eye; Z79.899 Other long term (current) drug therapy; Z79.01 Long term (current) use of anticoagulants; Z79.51 Long term (current) use of inhaled steroids; W22.8XXD Striking against or struck by other objects, subsequent encounter

== ENCOUNTER 2021-08-19 14:51 | Inpatient (IN) | payer MEDICARE, OTHER ==
[~2021-08-19] VITALS: Ht 177.8 cm; Wt 159.7 kg
[2021-08-19] VITALS (7 sets, daily range): BP systolic 102–139; BP diastolic 54–70
[~2021-08-19 14:51] MED LIST changes: -CIPRO500 MG PO; -DULOXETINE HCL30 MG PO
[2021-08-19 18:12] LABS: BASO % 0.1 % (0.0-1.0); EOS # 0.1 10*3/uL (0.0-0.4); HEMATOCRIT 25.6 % (37.0-47.0); LYMPH # 0.5 10*3/uL (1.3-4.4); LYMPH % 5.7 % (27.0-41.0); MEAN CELL VOLUME 90.1 fl (81.0-99.0); MEAN CORPUSCULAR HGB 26.1 pg (27.0-31.0); MEAN CORPUSCULAR HGB CONC 28.9 g/dl (33.0-37.0); MEAN PLATELET VOLUME 8.8 fl (9.6-12.3); MONO # 0.7 10*3/uL (0.1-1.0); MONO % 7.4 % (3.0-9.0); NEUT # 7.6 10*3/uL (2.3-7.9); NEUT % 85.4 % (47.0-73.0); PLATELET COUNT AUTOMATED 179 10*3/uL (130-400); RED BLOOD COUNT 2.84 10*6/uL (4.10-5.10); RED CELL DISTRI WIDTH 15.5 % (0-14.5); WHITE BLOOD COUNT 8.9 10*3/uL (4.8-10.8)
[2021-08-19 18:33] LABS: ALBUMIN 2.4 gm/dl (3.1-4.5); CREATININE 1.47 mg/dL (0.55-1.02); POTASSIUM 4.5 mmol/L (3.5-5.1)
[2021-08-19 18:35] LABS: TOTAL PROTEIN 6.2 gm/dL (6.4-8.2)
[2021-08-19 19:01] LABS: BILIRUBIN Negative (Negative); BLOOD 1+ (Negative); CLARITY Cloudy (Clear); COLOR Yellow (Yellow); GLUCOSE Negative (Negative); KETONE Negative (Negative); LEUKO ESTERASE 2+ (Negative); NITRITE Positive (Negative); PH 5.5 (4.5-8.0); SPECIFIC GRAVITY 1.015 (1.001-1.030)
[2021-08-19 19:37] LABS: BACTERIA 4+; CALCIUM OXALATE CRYSTALS 1+; WBC TNTC wbc/hpf (0-5); YEAST 1+
[2021-08-20] VITALS: BP 139/54
[2021-08-20] MEDS ORDERED: DULOXETINE HCL30 MG PO (03:24)
[2021-08-20 06:35] LABS: BASO % 0.3 % (0.0-1.0); EOS # 0.2 10*3/uL (0.0-0.4); HEMATOCRIT 28.2 % (37.0-47.0); LYMPH # 0.7 10*3/uL (1.3-4.4); LYMPH % 11.5 % (27.0-41.0); MEAN CELL VOLUME 89.5 fl (81.0-99.0); MEAN CORPUSCULAR HGB 26.3 pg (27.0-31.0); MEAN CORPUSCULAR HGB CONC 29.4 g/dl (33.0-37.0); MEAN PLATELET VOLUME 9.5 fl (9.6-12.3); MONO # 0.6 10*3/uL (0.1-1.0); MONO % 10.6 % (3.0-9.0); NEUT # 4.4 10*3/uL (2.3-7.9); NEUT % 73.3 % (47.0-73.0); PLATELET COUNT AUTOMATED 192 10*3/uL (130-400); RED BLOOD COUNT 3.15 10*6/uL (4.10-5.10); RED CELL DISTRI WIDTH 15.3 % (0-14.5)
[2021-08-20 06:43] LABS: INTERNATIONAL NORM RATIO 1.6 (2.0-3.5)
[2021-08-20 06:53] LABS: ALBUMIN 2.3 gm/dl (3.1-4.5); CREATININE 1.34 mg/dL (0.55-1.02); TOTAL PROTEIN 6.4 gm/dL (6.4-8.2)
[2021-08-20 08:00] VITALS: BP 135/75
[2021-08-20 12:00] VITALS: BP 126/67
[2021-08-20 16:00] VITALS: BP 103/67
[2021-08-20 20:00] VITALS: BP 142/56
[2021-08-21] VITALS: BP 123/59
[2021-08-21 06:24] LABS: BASO % 0.3 % (0.0-1.0); EOS # 0.2 10*3/uL (0.0-0.4); EOS % 2.6 % (1.0-4.0); HEMATOCRIT 24.8 % (37.0-47.0); LYMPH # 0.6 10*3/uL (1.3-4.4); LYMPH % 11.1 % (27.0-41.0); MEAN CELL VOLUME 88.3 fl (81.0-99.0); MEAN CORPUSCULAR HGB 27.4 pg (27.0-31.0); MEAN PLATELET VOLUME 9.3 fl (9.6-12.3); MONO # 0.5 10*3/uL (0.1-1.0); MONO % 8.9 % (3.0-9.0); NEUT # 4.4 10*3/uL (2.3-7.9); NEUT % 76.6 % (47.0-73.0); PLATELET COUNT AUTOMATED 205 10*3/uL (130-400); RED BLOOD COUNT 2.81 10*6/uL (4.10-5.10); WHITE BLOOD COUNT 5.7 10*3/uL (4.8-10.8)
[2021-08-21 06:34] LABS: INTERNATIONAL NORM RATIO 1.7 (2.0-3.5)
[2021-08-21 06:39] LABS: BUN 18 mg/dl (7-24); CHLORIDE 104 mmol/L (98-107); CREATININE 1.06 mg/dL (0.55-1.02); POTASSIUM 3.9 mmol/L (3.5-5.1); SODIUM 139 mmol/L (136-145)
[2021-08-21 08:00] VITALS: BP 142/72
[2021-08-21 12:00] VITALS: BP 102/58
[2021-08-21 16:00] VITALS: BP 135/73
[2021-08-21 20:00] VITALS: BP 160/77
[2021-08-22] VITALS: BP 127/69
[2021-08-22 06:57] LABS: BASO % 0.4 % (0.0-1.0); EOS # 0.2 10*3/uL (0.0-0.4); EOS % 3.5 % (1.0-4.0); HEMATOCRIT 26.3 % (37.0-47.0); LYMPH # 0.7 10*3/uL (1.3-4.4); LYMPH % 12.5 % (27.0-41.0); MEAN CORPUSCULAR HGB 25.8 pg (27.0-31.0); MEAN CORPUSCULAR HGB CONC 29.3 g/dl (33.0-37.0); MEAN PLATELET VOLUME 8.9 fl (9.6-12.3); MONO # 0.5 10*3/uL (0.1-1.0); MONO % 9.1 % (3.0-9.0); NEUT % 73.8 % (47.0-73.0); PLATELET COUNT AUTOMATED 232 10*3/uL (130-400); RED BLOOD COUNT 2.99 10*6/uL (4.10-5.10); RED CELL DISTRI WIDTH 14.8 % (0-14.5); WHITE BLOOD COUNT 5.4 10*3/uL (4.8-10.8)
[2021-08-22 07:07] LABS: BUN 17 mg/dl (7-24); CHLORIDE 105 mmol/L (98-107); CREATININE 0.91 mg/dL (0.55-1.02); POTASSIUM 3.5 mmol/L (3.5-5.1); SODIUM 141 mmol/L (136-145)
[2021-08-22 08:00] VITALS: BP 142/42
[2021-08-22 11:54] VITALS: BP 154/78
[2021-08-22] MEDS ORDERED: Coumadin10 MG PO (13:32)
[2021-08-22] MEDS ORDERED: CIPRO500 MG PO (13:35)
== END 2021-08-22 15:35 | disposition home health service (06) | DRG 698 ==
LOC: ED 14:51 → EDHOLD 20:34 → 5E 20:34
PROVIDERS: Family Medicine; Internal Medicine; Student in an Organized Health Care Education/Training Program; ADMIT Internal Medicine; ATTEND Internal Medicine
PROC: 5A09357 Assistance with Respiratory Ventilation, Less than 24 Consecutive Hours, Continuous Positive Airway Pressure (ICD-10-PCS; principal; 2021-08-21)
DX: T83.511A Infection and inflammatory reaction due to indwelling urethral catheter, initial encounter (principal); G93.41 Metabolic encephalopathy; N17.0 Acute kidney failure with tubular necrosis; E87.1 Hypo-osmolality and hyponatremia; E44.0 Moderate protein-calorie malnutrition; Y83.8 Other surgical procedures as the cause of abnormal reaction of the patient, or of later complication, without mention of misadventure at the time of the procedure; N39.0 Urinary tract infection, site not specified; F32.A Depression, unspecified; E11.65 Type 2 diabetes mellitus with hyperglycemia; E11.42 Type 2 diabetes mellitus with diabetic polyneuropathy; M19.91 Primary osteoarthritis, unspecified site; I10 Essential (primary) hypertension; Y92.89 Other specified places as the place of occurrence of the external cause; Z91.041 Radiographic dye allergy status; Z91.040 Latex allergy status; Z88.5 Allergy status to narcotic agent; Z82.49 Family history of ischemic heart disease and other diseases of the circulatory system; Z79.51 Long term (current) use of inhaled steroids; Z79.01 Long term (current) use of anticoagulants; Z90.710 Acquired absence of both cervix and uterus

== ENCOUNTER → 2021-08-30 | Outpatient (CLI) | payer MEDICARE, OTHER ==
[~2021-08-30] MED LIST changes: +CIPRO500 MG PO; +DULOXETINE HCL30 MG PO
== END ==
LOC: WOUNDCARE 02:49
PROVIDERS: ATTEND Nurse Practitioner Family
DX: S81.812D Laceration without foreign body, left lower leg, subsequent encounter (principal); L97.812 Non-pressure chronic ulcer of other part of right lower leg with fat layer exposed; D48.9 Neoplasm of uncertain behavior, unspecified; R22.41 Localized swelling, mass and lump, right lower limb; J44.9 Chronic obstructive pulmonary disease, unspecified; R32 Unspecified urinary incontinence; Z90.710 Acquired absence of both cervix and uterus; Z98.890 Other specified postprocedural states; Z98.49 Cataract extraction status, unspecified eye; Z79.899 Other long term (current) drug therapy; Z79.01 Long term (current) use of anticoagulants; Z79.51 Long term (current) use of inhaled steroids; W22.8XXD Striking against or struck by other objects, subsequent encounter

== ENCOUNTER → 2021-09-05 | Outpatient (CLI) | payer MEDICARE, OTHER | END | disposition home or self-care (01) | LOC: US 15:00 | PROVIDERS: ATTEND Nurse Practitioner Family | DX: S81.809A Unspecified open wound, unspecified lower leg, initial encounter (principal); R60.0 Localized edema; I73.9 Peripheral vascular disease, unspecified; X58.XXXA Exposure to other specified factors, initial encounter ==

== ENCOUNTER → 2021-09-07 | Outpatient (CLI) | payer MEDICARE, OTHER | LOC: WOUNDCARE 02:25 | PROVIDERS: ATTEND Nurse Practitioner Family | DX: S81.812D Laceration without foreign body, left lower leg, subsequent encounter (principal); L97.812 Non-pressure chronic ulcer of other part of right lower leg with fat layer exposed; D48.9 Neoplasm of uncertain behavior, unspecified; R22.41 Localized swelling, mass and lump, right lower limb; J44.9 Chronic obstructive pulmonary disease, unspecified; R32 Unspecified urinary incontinence; Z90.710 Acquired absence of both cervix and uterus; Z98.890 Other specified postprocedural states; Z98.49 Cataract extraction status, unspecified eye; Z79.899 Other long term (current) drug therapy; Z79.01 Long term (current) use of anticoagulants; Z79.51 Long term (current) use of inhaled steroids; W22.8XXD Striking against or struck by other objects, subsequent encounter ==

== ENCOUNTER → 2021-09-14 | Outpatient (CLI) | payer MEDICARE, OTHER | LOC: WOUNDCARE 01:08 | PROVIDERS: ATTEND Nurse Practitioner Family | DX: S81.812D Laceration without foreign body, left lower leg, subsequent encounter (principal); L97.812 Non-pressure chronic ulcer of other part of right lower leg with fat layer exposed; D48.9 Neoplasm of uncertain behavior, unspecified; R22.41 Localized swelling, mass and lump, right lower limb; J44.9 Chronic obstructive pulmonary disease, unspecified; R32 Unspecified urinary incontinence; Z90.710 Acquired absence of both cervix and uterus; Z98.890 Other specified postprocedural states; Z98.49 Cataract extraction status, unspecified eye; Z79.899 Other long term (current) drug therapy; Z79.01 Long term (current) use of anticoagulants; Z79.51 Long term (current) use of inhaled steroids; W22.8XXD Striking against or struck by other objects, subsequent encounter ==

== ENCOUNTER → 2021-09-28 | Outpatient (CLI) | payer MEDICARE, OTHER | LOC: WOUNDCARE 04:03 | PROVIDERS: ATTEND Nurse Practitioner Family | DX: L97.812 Non-pressure chronic ulcer of other part of right lower leg with fat layer exposed (principal); S81.812D Laceration without foreign body, left lower leg, subsequent encounter; R22.41 Localized swelling, mass and lump, right lower limb; J44.9 Chronic obstructive pulmonary disease, unspecified; R32 Unspecified urinary incontinence; Z90.710 Acquired absence of both cervix and uterus; Z98.890 Other specified postprocedural states; Z98.49 Cataract extraction status, unspecified eye; Z79.899 Other long term (current) drug therapy; Z79.01 Long term (current) use of anticoagulants; Z79.51 Long term (current) use of inhaled steroids; W22.8XXD Striking against or struck by other objects, subsequent encounter ==

== ENCOUNTER → 2021-10-04 | Outpatient (CLI) | payer MEDICARE, OTHER | LOC: WOUNDCARE 01:42 | PROVIDERS: ATTEND Surgery | DX: L97.812 Non-pressure chronic ulcer of other part of right lower leg with fat layer exposed (principal); S81.812D Laceration without foreign body, left lower leg, subsequent encounter; R22.41 Localized swelling, mass and lump, right lower limb; J44.9 Chronic obstructive pulmonary disease, unspecified; R32 Unspecified urinary incontinence; Z90.710 Acquired absence of both cervix and uterus; Z98.890 Other specified postprocedural states; Z98.49 Cataract extraction status, unspecified eye; Z79.899 Other long term (current) drug therapy; Z79.01 Long term (current) use of anticoagulants; Z79.51 Long term (current) use of inhaled steroids; W22.8XXD Striking against or struck by other objects, subsequent encounter ==

== ENCOUNTER → 2021-10-10 | Outpatient (CLI) | payer MEDICARE, OTHER | LOC: WOUNDCARE 02:44 | PROVIDERS: ATTEND Nurse Practitioner Family | DX: L97.812 Non-pressure chronic ulcer of other part of right lower leg with fat layer exposed (principal); S81.812D Laceration without foreign body, left lower leg, subsequent encounter; L59.9 Disorder of the skin and subcutaneous tissue related to radiation, unspecified; R22.41 Localized swelling, mass and lump, right lower limb; J44.9 Chronic obstructive pulmonary disease, unspecified; R32 Unspecified urinary incontinence; Z90.710 Acquired absence of both cervix and uterus; Z98.890 Other specified postprocedural states; Z98.49 Cataract extraction status, unspecified eye; Z79.899 Other long term (current) drug therapy; Z79.01 Long term (current) use of anticoagulants; Z79.51 Long term (current) use of inhaled steroids; W22.8XXD Striking against or struck by other objects, subsequent encounter ==

== ENCOUNTER → 2021-10-20 | Outpatient (CLI) | payer MEDICARE, OTHER | LOC: WOUNDCARE 10-19 00:45 | PROVIDERS: ATTEND Nurse Practitioner Family | DX: L97.812 Non-pressure chronic ulcer of other part of right lower leg with fat layer exposed (principal); S81.812D Laceration without foreign body, left lower leg, subsequent encounter; R22.41 Localized swelling, mass and lump, right lower limb; J44.9 Chronic obstructive pulmonary disease, unspecified; R32 Unspecified urinary incontinence; Z90.710 Acquired absence of both cervix and uterus; Z98.890 Other specified postprocedural states; Z98.49 Cataract extraction status, unspecified eye; Z79.899 Other long term (current) drug therapy; Z79.01 Long term (current) use of anticoagulants; Z79.51 Long term (current) use of inhaled steroids; W22.8XXD Striking against or struck by other objects, subsequent encounter ==

== ENCOUNTER → 2021-10-26 | Outpatient (CLI) | payer MEDICARE, OTHER | LOC: WOUNDCARE 03:37 | PROVIDERS: ATTEND Nurse Practitioner Family | DX: L97.812 Non-pressure chronic ulcer of other part of right lower leg with fat layer exposed (principal); S81.812D Laceration without foreign body, left lower leg, subsequent encounter; R22.41 Localized swelling, mass and lump, right lower limb; J44.9 Chronic obstructive pulmonary disease, unspecified; R32 Unspecified urinary incontinence; L59.9 Disorder of the skin and subcutaneous tissue related to radiation, unspecified; Z90.710 Acquired absence of both cervix and uterus; Z98.890 Other specified postprocedural states; Z98.49 Cataract extraction status, unspecified eye; Z79.899 Other long term (current) drug therapy; Z79.01 Long term (current) use of anticoagulants; Z79.51 Long term (current) use of inhaled steroids; W22.8XXD Striking against or struck by other objects, subsequent encounter ==

== ENCOUNTER → 2021-11-03 | Outpatient (CLI) | payer MEDICARE, OTHER | LOC: WOUNDCARE 01:21 | PROVIDERS: ATTEND Nurse Practitioner Family | DX: L97.812 Non-pressure chronic ulcer of other part of right lower leg with fat layer exposed (principal); S81.812D Laceration without foreign body, left lower leg, subsequent encounter; R22.41 Localized swelling, mass and lump, right lower limb; J44.9 Chronic obstructive pulmonary disease, unspecified; R32 Unspecified urinary incontinence; L59.9 Disorder of the skin and subcutaneous tissue related to radiation, unspecified; Z90.710 Acquired absence of both cervix and uterus; Z98.890 Other specified postprocedural states; Z98.49 Cataract extraction status, unspecified eye; Z79.899 Other long term (current) drug therapy; Z79.01 Long term (current) use of anticoagulants; Z79.51 Long term (current) use of inhaled steroids; W22.8XXD Striking against or struck by other objects, subsequent encounter ==

== ENCOUNTER → 2021-11-14 | Outpatient (CLI) | payer MEDICARE, OTHER | LOC: WOUNDCARE 00:39 | PROVIDERS: ATTEND Nurse Practitioner Family | DX: L97.812 Non-pressure chronic ulcer of other part of right lower leg with fat layer exposed (principal); S81.812D Laceration without foreign body, left lower leg, subsequent encounter; R22.41 Localized swelling, mass and lump, right lower limb; J44.9 Chronic obstructive pulmonary disease, unspecified; R32 Unspecified urinary incontinence; L59.9 Disorder of the skin and subcutaneous tissue related to radiation, unspecified; Z90.710 Acquired absence of both cervix and uterus; Z98.890 Other specified postprocedural states; Z98.49 Cataract extraction status, unspecified eye; Z79.899 Other long term (current) drug therapy; Z79.01 Long term (current) use of anticoagulants; Z79.51 Long term (current) use of inhaled steroids; W22.8XXD Striking against or struck by other objects, subsequent encounter ==

== ENCOUNTER → 2021-11-23 | Outpatient (CLI) | payer MEDICARE, OTHER | LOC: WOUNDCARE 00:43 | PROVIDERS: ATTEND Nurse Practitioner Family | DX: T81.89XA Other complications of procedures, not elsewhere classified, initial encounter (principal); L97.812 Non-pressure chronic ulcer of other part of right lower leg with fat layer exposed; S81.812D Laceration without foreign body, left lower leg, subsequent encounter; L59.9 Disorder of the skin and subcutaneous tissue related to radiation, unspecified; R22.41 Localized swelling, mass and lump, right lower limb; J44.9 Chronic obstructive pulmonary disease, unspecified; R32 Unspecified urinary incontinence; Z90.710 Acquired absence of both cervix and uterus; Z98.890 Other specified postprocedural states; Z98.49 Cataract extraction status, unspecified eye; Z79.899 Other long term (current) drug therapy; Z79.01 Long term (current) use of anticoagulants; W22.8XXD Striking against or struck by other objects, subsequent encounter; Y83.8 Other surgical procedures as the cause of abnormal reaction of the patient, or of later complication, without mention of misadventure at the time of the procedure; Y92.238 Other place in hospital as the place of occurrence of the external cause ==

== ENCOUNTER → 2021-12-09 | Outpatient (CLI) | payer MEDICARE, OTHER | LOC: WOUNDCARE 03:31 | PROVIDERS: ATTEND Nurse Practitioner Family | DX: T86.828 Other complications of skin graft (allograft) (autograft) (principal); L97.812 Non-pressure chronic ulcer of other part of right lower leg with fat layer exposed; S81.812D Laceration without foreign body, left lower leg, subsequent encounter; R22.41 Localized swelling, mass and lump, right lower limb; J44.9 Chronic obstructive pulmonary disease, unspecified; R32 Unspecified urinary incontinence; Z90.710 Acquired absence of both cervix and uterus; Z98.890 Other specified postprocedural states; Z98.49 Cataract extraction status, unspecified eye; Z79.899 Other long term (current) drug therapy; Z79.01 Long term (current) use of anticoagulants; W22.8XXD Striking against or struck by other objects, subsequent encounter; Y83.2 Surgical operation with anastomosis, bypass or graft as the cause of abnormal reaction of the patient, or of later complication, without mention of misadventure at the time of the procedure ==

== ENCOUNTER → 2021-12-14 | Outpatient (CLI) | payer MEDICARE, OTHER | LOC: WOUNDCARE 09:12 | PROVIDERS: ATTEND Nurse Practitioner Family | DX: T86.828 Other complications of skin graft (allograft) (autograft) (principal); L97.812 Non-pressure chronic ulcer of other part of right lower leg with fat layer exposed; S81.812D Laceration without foreign body, left lower leg, subsequent encounter; R22.41 Localized swelling, mass and lump, right lower limb; J44.9 Chronic obstructive pulmonary disease, unspecified; R32 Unspecified urinary incontinence; Z90.710 Acquired absence of both cervix and uterus; Z98.890 Other specified postprocedural states; Z98.49 Cataract extraction status, unspecified eye; Z79.899 Other long term (current) drug therapy; W22.8XXD Striking against or struck by other objects, subsequent encounter; Y83.2 Surgical operation with anastomosis, bypass or graft as the cause of abnormal reaction of the patient, or of later complication, without mention of misadventure at the time of the procedure ==

== ENCOUNTER → 2021-12-22 | Outpatient (CLI) | payer MEDICARE, OTHER | LOC: WOUNDCARE 01:02 | PROVIDERS: ATTEND Nurse Practitioner Family | DX: S81.812D Laceration without foreign body, left lower leg, subsequent encounter (principal); L97.812 Non-pressure chronic ulcer of other part of right lower leg with fat layer exposed; R22.41 Localized swelling, mass and lump, right lower limb; J44.9 Chronic obstructive pulmonary disease, unspecified; Z48.02 Encounter for removal of sutures; Z98.49 Cataract extraction status, unspecified eye; Z90.710 Acquired absence of both cervix and uterus; X58.XXXD Exposure to other specified factors, subsequent encounter ==

== ENCOUNTER → 2021-12-30 | Outpatient (CLI) | payer MEDICARE, OTHER | LOC: WOUNDCARE 01:36 | PROVIDERS: ATTEND Nurse Practitioner Family | DX: L97.812 Non-pressure chronic ulcer of other part of right lower leg with fat layer exposed (principal); S81.812D Laceration without foreign body, left lower leg, subsequent encounter; S81.809D Unspecified open wound, unspecified lower leg, subsequent encounter; R22.41 Localized swelling, mass and lump, right lower limb; J44.9 Chronic obstructive pulmonary disease, unspecified; Z48.02 Encounter for removal of sutures; Z98.49 Cataract extraction status, unspecified eye; Z90.710 Acquired absence of both cervix and uterus; X58.XXXD Exposure to other specified factors, subsequent encounter ==

== ENCOUNTER → 2022-01-04 | Outpatient (CLI) | payer MEDICARE, OTHER | LOC: WOUNDCARE 07:28 | PROVIDERS: ATTEND Nurse Practitioner Family | DX: L97.812 Non-pressure chronic ulcer of other part of right lower leg with fat layer exposed (principal); L95.9 Vasculitis limited to the skin, unspecified; S81.812D Laceration without foreign body, left lower leg, subsequent encounter; S81.809D Unspecified open wound, unspecified lower leg, subsequent encounter; R22.41 Localized swelling, mass and lump, right lower limb; J44.9 Chronic obstructive pulmonary disease, unspecified; Z98.49 Cataract extraction status, unspecified eye; Z90.710 Acquired absence of both cervix and uterus; X58.XXXD Exposure to other specified factors, subsequent encounter ==

== ENCOUNTER → 2022-01-13 | Outpatient (CLI) | payer MEDICARE, OTHER | END | disposition home or self-care (01) | LOC: WOUNDCARE 01:09 | PROVIDERS: ATTEND Nurse Practitioner Family | DX: L97.812 Non-pressure chronic ulcer of other part of right lower leg with fat layer exposed (principal); L95.9 Vasculitis limited to the skin, unspecified; S81.812D Laceration without foreign body, left lower leg, subsequent encounter; S81.809D Unspecified open wound, unspecified lower leg, subsequent encounter; R22.41 Localized swelling, mass and lump, right lower limb; J44.9 Chronic obstructive pulmonary disease, unspecified; Z98.49 Cataract extraction status, unspecified eye; Z90.710 Acquired absence of both cervix and uterus; X58.XXXD Exposure to other specified factors, subsequent encounter ==

== ENCOUNTER 2022-01-14 10:58 | Emergency (ER) | payer MEDICARE, OTHER ==
[~2022-01-14] VITALS: Ht 177.8 cm; Wt 153.9 kg
[2022-01-14 11:58] LABS: BASO % 0.5 % (0.0-1.0); EOS # 0.3 10*3/uL (0.0-0.4); EOS % 4.2 % (1.0-4.0); HEMATOCRIT 35.7 % (37.0-47.0); LYMPH # 0.7 10*3/uL (1.3-4.4); LYMPH % 11.3 % (27.0-41.0); MEAN CELL VOLUME 76.6 fl (81.0-99.0); MEAN CORPUSCULAR HGB 22.3 pg (27.0-31.0); MEAN CORPUSCULAR HGB CONC 29.1 g/dl (33.0-37.0); MEAN PLATELET VOLUME 9.4 fl (9.6-12.3); MONO # 0.5 10*3/uL (0.1-1.0); MONO % 8.1 % (3.0-9.0); NEUT # 4.7 10*3/uL (2.3-7.9); NEUT % 75.3 % (47.0-73.0); PLATELET COUNT AUTOMATED 212 10*3/uL (130-400); RED BLOOD COUNT 4.66 10*6/uL (4.10-5.10); RED CELL DISTRI WIDTH 17.1 % (0-14.5); WHITE BLOOD COUNT 6.2 10*3/uL (4.8-10.8)
[2022-01-14 12:13] LABS: ACETAMINOPHEN (TYLENOL) < 5.0 ug/ml (10-30); ALKALINE PHOSPHATASE 108 U/L (45-117); BUN 16 mg/dl (7-24); CHLORIDE 100 mmol/L (98-107); CREATININE 1.12 mg/dL (0.55-1.02); ETHYL ALCOHOL < 3.0 mg/dl (<3); SGOT/AST 7 IU/L (3-35); SGPT/ALT 18 U/L (12-78); SODIUM 138 mmol/L (136-145); TOTAL PROTEIN 6.9 gm/dL (6.4-8.2)
== END 2022-01-14 22:23 | disposition home or self-care (01) ==
LOC: ED 10:58
PROVIDERS: Student in an Organized Health Care Education/Training Program
DX: T43.211A Poisoning by selective serotonin and norepinephrine reuptake inhibitors, accidental (unintentional), initial encounter (principal); Z91.040 Latex allergy status; Z88.8 Allergy status to other drugs, medicaments and biological substances; Z79.899 Other long term (current) drug therapy; Z90.710 Acquired absence of both cervix and uterus; Z98.890 Other specified postprocedural states; Z90.89 Acquired absence of other organs; Y92.89 Other specified places as the place of occurrence of the external cause

== ENCOUNTER 2022-01-28 05:37 | Emergency (ER) | payer MEDICARE, OTHER ==
[~2022-01-28] VITALS: Wt 127.0 kg
== END 2022-01-28 06:53 | disposition home or self-care (01) ==
LOC: ED 05:37
DX: T78.40XA Allergy, unspecified, initial encounter (principal); Z88.8 Allergy status to other drugs, medicaments and biological substances; Z91.040 Latex allergy status; Z79.899 Other long term (current) drug therapy; Z90.710 Acquired absence of both cervix and uterus; Z98.890 Other specified postprocedural states; Z90.89 Acquired absence of other organs; X58.XXXA Exposure to other specified factors, initial encounter

== ENCOUNTER → 2022-02-03 | Outpatient (CLI) | payer MEDICARE, OTHER | END | disposition home or self-care (01) | LOC: WOUNDCARE 02-02 00:22 | PROVIDERS: ATTEND Nurse Practitioner Family | DX: L97.812 Non-pressure chronic ulcer of other part of right lower leg with fat layer exposed (principal); S81.812D Laceration without foreign body, left lower leg, subsequent encounter; S81.801D Unspecified open wound, right lower leg, subsequent encounter; R22.41 Localized swelling, mass and lump, right lower limb; J44.9 Chronic obstructive pulmonary disease, unspecified; Z90.710 Acquired absence of both cervix and uterus; Z48.02 Encounter for removal of sutures; X58.XXXD Exposure to other specified factors, subsequent encounter ==

== ENCOUNTER → 2022-02-15 | Outpatient (CLI) | payer MEDICARE, OTHER | END | disposition home or self-care (01) | LOC: WOUNDCARE 01:34 | PROVIDERS: ATTEND Nurse Practitioner Family | DX: L97.812 Non-pressure chronic ulcer of other part of right lower leg with fat layer exposed (principal); S81.812D Laceration without foreign body, left lower leg, subsequent encounter; S51.801A Unspecified open wound of right forearm, initial encounter; R22.41 Localized swelling, mass and lump, right lower limb; J44.9 Chronic obstructive pulmonary disease, unspecified; Z48.02 Encounter for removal of sutures; Z90.710 Acquired absence of both cervix and uterus; Z98.49 Cataract extraction status, unspecified eye; X58.XXXA Exposure to other specified factors, initial encounter; Y93.89 Activity, other specified; Y92.89 Other specified places as the place of occurrence of the external cause; Y99.8 Other external cause status ==

== ENCOUNTER → 2022-03-01 | Outpatient (CLI) | payer MEDICARE, OTHER | END | disposition home or self-care (01) | LOC: WOUNDCARE 02:03 | PROVIDERS: ATTEND Nurse Practitioner Family | DX: L97.812 Non-pressure chronic ulcer of other part of right lower leg with fat layer exposed (principal); S81.812D Laceration without foreign body, left lower leg, subsequent encounter; R22.41 Localized swelling, mass and lump, right lower limb; J44.9 Chronic obstructive pulmonary disease, unspecified; Z48.02 Encounter for removal of sutures; X58.XXXD Exposure to other specified factors, subsequent encounter ==

== ENCOUNTER → 2022-03-16 | Outpatient (CLI) | payer MEDICARE, OTHER | END | disposition home or self-care (01) | LOC: WOUNDCARE 03-15 02:21 | PROVIDERS: ATTEND Nurse Practitioner Family | DX: L97.812 Non-pressure chronic ulcer of other part of right lower leg with fat layer exposed (principal); L95.9 Vasculitis limited to the skin, unspecified; S81.812D Laceration without foreign body, left lower leg, subsequent encounter; R22.41 Localized swelling, mass and lump, right lower limb; J44.9 Chronic obstructive pulmonary disease, unspecified; X58.XXXD Exposure to other specified factors, subsequent encounter ==

== ENCOUNTER → 2022-03-22 | Outpatient (CLI) | payer MEDICARE, OTHER | END | disposition home or self-care (01) | LOC: WOUNDCARE 01:41 | PROVIDERS: ATTEND Nurse Practitioner Family | DX: L97.812 Non-pressure chronic ulcer of other part of right lower leg with fat layer exposed (principal); S81.812D Laceration without foreign body, left lower leg, subsequent encounter; S81.801D Unspecified open wound, right lower leg, subsequent encounter; R22.41 Localized swelling, mass and lump, right lower limb; J44.9 Chronic obstructive pulmonary disease, unspecified; Z48.02 Encounter for removal of sutures; Z98.49 Cataract extraction status, unspecified eye; Z90.710 Acquired absence of both cervix and uterus; X58.XXXD Exposure to other specified factors, subsequent encounter ==

== ENCOUNTER → 2022-04-07 | Outpatient (CLI) | payer MEDICARE, OTHER | END | disposition home or self-care (01) | LOC: WOUNDCARE 03:39 | PROVIDERS: ATTEND Nurse Practitioner Family | DX: L97.812 Non-pressure chronic ulcer of other part of right lower leg with fat layer exposed (principal); S81.812D Laceration without foreign body, left lower leg, subsequent encounter; R22.41 Localized swelling, mass and lump, right lower limb; J44.9 Chronic obstructive pulmonary disease, unspecified; Z48.02 Encounter for removal of sutures; Z90.710 Acquired absence of both cervix and uterus; X58.XXXD Exposure to other specified factors, subsequent encounter ==

== ENCOUNTER → 2022-04-26 | Outpatient (CLI) | payer MEDICARE, OTHER | END | disposition home or self-care (01) | LOC: WOUNDCARE 02:50 | PROVIDERS: ATTEND Nurse Practitioner Family | DX: L97.818 Non-pressure chronic ulcer of other part of right lower leg with other specified severity (principal); L95.8 Other vasculitis limited to the skin; R22.41 Localized swelling, mass and lump, right lower limb; J44.9 Chronic obstructive pulmonary disease, unspecified; Z48.02 Encounter for removal of sutures; Z90.710 Acquired absence of both cervix and uterus ==

== ENCOUNTER → 2022-11-14 | Outpatient (CLI) | payer MEDICARE, OTHER | END | disposition home or self-care (01) | LOC: WOUNDCARE 02:36 | PROVIDERS: ATTEND Nurse Practitioner Family | DX: L89.323 Pressure ulcer of left buttock, stage 3 (principal); L89.313 Pressure ulcer of right buttock, stage 3; I87.2 Venous insufficiency (chronic) (peripheral); I10 Essential (primary) hypertension; J44.9 Chronic obstructive pulmonary disease, unspecified; Z99.81 Dependence on supplemental oxygen; Z90.710 Acquired absence of both cervix and uterus; Z98.49 Cataract extraction status, unspecified eye; Z86.718 Personal history of other venous thrombosis and embolism ==

== ENCOUNTER → 2022-11-30 | Outpatient (CLI) | payer MEDICARE, OTHER | END | disposition home or self-care (01) | LOC: WOUNDCARE 00:35 | PROVIDERS: ATTEND Nurse Practitioner Family | DX: L89.323 Pressure ulcer of left buttock, stage 3 (principal); L89.313 Pressure ulcer of right buttock, stage 3; L89.623 Pressure ulcer of left heel, stage 3; R21 Rash and other nonspecific skin eruption; L30.4 Erythema intertrigo; I87.2 Venous insufficiency (chronic) (peripheral); I10 Essential (primary) hypertension; J44.9 Chronic obstructive pulmonary disease, unspecified; Z90.710 Acquired absence of both cervix and uterus; Z99.81 Dependence on supplemental oxygen; Z86.718 Personal history of other venous thrombosis and embolism ==

== ENCOUNTER → 2022-12-14 | Outpatient (CLI) | payer MEDICARE, OTHER | END | disposition home or self-care (01) | LOC: WOUNDCARE 01:08 | PROVIDERS: ATTEND Nurse Practitioner Family | DX: L89.323 Pressure ulcer of left buttock, stage 3 (principal); L89.313 Pressure ulcer of right buttock, stage 3; L89.623 Pressure ulcer of left heel, stage 3; I87.2 Venous insufficiency (chronic) (peripheral); I10 Essential (primary) hypertension; J44.9 Chronic obstructive pulmonary disease, unspecified; L30.4 Erythema intertrigo; Z99.81 Dependence on supplemental oxygen; Z98.49 Cataract extraction status, unspecified eye; Z90.710 Acquired absence of both cervix and uterus; Z86.718 Personal history of other venous thrombosis and embolism ==

== ENCOUNTER → 2023-01-10 | Outpatient (CLI) | payer MEDICARE, OTHER | END | disposition home or self-care (01) | LOC: WOUNDCARE 12-28 02:22 | PROVIDERS: ATTEND Nurse Practitioner Family | DX: L97.812 Non-pressure chronic ulcer of other part of right lower leg with fat layer exposed (principal); L89.313 Pressure ulcer of right buttock, stage 3; L89.323 Pressure ulcer of left buttock, stage 3; S81.801A Unspecified open wound, right lower leg, initial encounter; L30.4 Erythema intertrigo; I87.2 Venous insufficiency (chronic) (peripheral); I10 Essential (primary) hypertension; J44.9 Chronic obstructive pulmonary disease, unspecified; Z99.81 Dependence on supplemental oxygen; Z98.49 Cataract extraction status, unspecified eye; Z90.710 Acquired absence of both cervix and uterus; Z86.718 Personal history of other venous thrombosis and embolism; X58.XXXA Exposure to other specified factors, initial encounter; Y93.89 Activity, other specified; Y92.89 Other specified places as the place of occurrence of the external cause; Y99.8 Other external cause status ==

== ENCOUNTER → 2023-02-01 | Outpatient (CLI) | payer MEDICARE, OTHER | END | disposition home or self-care (01) | LOC: WOUNDCARE 01-23 01:42 | PROVIDERS: ATTEND Nurse Practitioner Family | DX: L97.812 Non-pressure chronic ulcer of other part of right lower leg with fat layer exposed (principal); S81.801D Unspecified open wound, right lower leg, subsequent encounter; J44.9 Chronic obstructive pulmonary disease, unspecified; I87.2 Venous insufficiency (chronic) (peripheral); I10 Essential (primary) hypertension; Z99.81 Dependence on supplemental oxygen; Z98.49 Cataract extraction status, unspecified eye; Z90.710 Acquired absence of both cervix and uterus; Z86.718 Personal history of other venous thrombosis and embolism; X58.XXXD Exposure to other specified factors, subsequent encounter ==

== ENCOUNTER 2023-02-15 13:50 | Emergency (ER) | payer MEDICARE, OTHER ==
[~2023-02-15] VITALS: Ht 177.8 cm; Wt 136.1 kg
== END 2023-02-15 15:25 | disposition home or self-care (01) ==
LOC: ED 13:50
DX: R79.0 Abnormal level of blood mineral (principal); I10 Essential (primary) hypertension; J44.9 Chronic obstructive pulmonary disease, unspecified; M19.90 Unspecified osteoarthritis, unspecified site; Z88.5 Allergy status to narcotic agent; Z91.041 Radiographic dye allergy status; Z91.040 Latex allergy status; Z90.710 Acquired absence of both cervix and uterus; Z98.890 Other specified postprocedural states; Z90.89 Acquired absence of other organs

== ENCOUNTER 2025-02-08 17:18 | Emergency (ER) | payer MEDICARE, OTHER ==
[~2025-02-08] VITALS: Ht 177.8 cm; Wt 136.1 kg
[2025-02-08] MEDS ORDERED: 'CLONIDINE0.1 MG PO (17:50)
[2025-02-08] MEDS ORDERED: OZEMPIC0.25 MG/03 SQ (17:51)
[2025-02-08] MEDS ORDERED: hydrALAZINE hydrochloride 20 MG/ML VIAL IV ONE (18:00)
[2025-02-08] MEDS ORDERED: amLODIPine besylate 10 MG TAB PO ONE (18:00)
[2025-02-08 18:11] LABS: BASO % 0.6 % (0.0-1.0); EOS # 0.3 10*3/uL (0.0-0.4); EOS % 3.6 % (1.0-4.0); HEMATOCRIT 35.3 % (37.0-47.0); MEAN CELL VOLUME 83.3 fl (81.0-99.0); MEAN CORPUSCULAR HGB 25.9 pg (27.0-31.0); MEAN CORPUSCULAR HGB CONC 31.2 g/dl (33.0-37.0); MEAN PLATELET VOLUME 8.9 fl (9.6-12.3); MONO # 0.6 10*3/uL (0.1-1.0); NEUT # 5.1 10*3/uL (2.3-7.9); NEUT % 73.2 % (47.0-73.0); PLATELET COUNT AUTOMATED 207 10*3/uL (130-400); RED BLOOD COUNT 4.24 10*6/uL (4.10-5.10); RED CELL DISTRI WIDTH 13.5 % (0-14.5)
[2025-02-08 18:26] LABS: POTASSIUM 3.8 mmol/L (3.4-5.1)
[2025-02-08] MEDS ORDERED: NORVASC5 MG PO (18:37)
== END 2025-02-08 20:13 | disposition home or self-care (01) ==
LOC: ED 17:18
PROVIDERS: Emergency Medicine
DX: I16.0 Hypertensive urgency (principal); J44.9 Chronic obstructive pulmonary disease, unspecified; I11.0 Hypertensive heart disease with heart failure; I50.9 Heart failure, unspecified; M79.7 Fibromyalgia; M19.90 Unspecified osteoarthritis, unspecified site; E78.5 Hyperlipidemia, unspecified; I48.91 Unspecified atrial fibrillation; Z88.5 Allergy status to narcotic agent; Z91.041 Radiographic dye allergy status; Z91.040 Latex allergy status; Z79.899 Other long term (current) drug therapy; Z90.710 Acquired absence of both cervix and uterus; Z98.890 Other specified postprocedural states; Z90.89 Acquired absence of other organs

== ENCOUNTER 2025-03-10 18:07 | Emergency (ER) | payer MEDICARE, OTHER ==
[~2025-03-10] VITALS: Ht 177.8 cm; Wt 136.1 kg
[~2025-03-10 18:07] MED LIST changes: +'CLONIDINE0.1 MG PO; +NORVASC5 MG PO; +OZEMPIC0.25 MG/03 SQ
[2025-03-10 18:39] LABS: BASO % 0.4 % (0.0-1.0); EOS # 0.3 10*3/uL (0.0-0.4); EOS % 3.8 % (1.0-4.0); HEMATOCRIT 34.7 % (37.0-47.0); MEAN CELL VOLUME 81.5 fl (81.0-99.0); MEAN CORPUSCULAR HGB 26.1 pg (27.0-31.0); MEAN PLATELET VOLUME 9.3 fl (9.6-12.3); MONO # 0.6 10*3/uL (0.1-1.0); MONO % 7.8 % (3.0-9.0); NEUT # 5.7 10*3/uL (2.3-7.9); NEUT % 72.3 % (47.0-73.0); PLATELET COUNT AUTOMATED 217 10*3/uL (130-400); RED BLOOD COUNT 4.26 10*6/uL (4.10-5.10); RED CELL DISTRI WIDTH 13.4 % (0-14.5); WHITE BLOOD COUNT 7.9 10*3/uL (4.8-10.8)
[2025-03-10 19:02] LABS: POTASSIUM 3.5 mmol/L (3.4-5.1); TOTAL PROTEIN 6.9 gm/dL (6.0-8.0)
[2025-03-10 19:20] LABS: BILIRUBIN Negative (Negative); BLOOD Trace-Lysed (Negative); CLARITY Cloudy (Clear); COLOR Yellow (Yellow); GLUCOSE Negative (Negative); KETONE Negative (Negative); LEUKO ESTERASE 3+ (Negative); NITRITE Positive (Negative); PH 6.5 (4.5-8.0); SPECIFIC GRAVITY <= 1.005 (1.001-1.030); UROBILINOGEN 0.2 E.U./dl (0.0-1.0)
[2025-03-10 19:32] LABS: BACTERIA 3+; WBC 16-20 wbc/hpf (0-5)
[2025-03-10] MEDS ORDERED: MAGNESIUM OXIDE 400 MG TAB PO ONE (19:40)
[2025-03-10] MEDS ORDERED: Ciprofloxacin Hydrochloride 500 MG TAB PO ONE (19:40)
[2025-03-10] MEDS ORDERED: CIPRO500 MG PO (20:22)
== END 2025-03-10 20:29 | disposition home or self-care (01) ==
LOC: ED 18:07
PROVIDERS: Internal Medicine
DX: I12.9 Hypertensive chronic kidney disease with stage 1 through stage 4 chronic kidney disease, or unspecified chronic kidney disease (principal); N18.31 Chronic kidney disease, stage 3a; N39.0 Urinary tract infection, site not specified; E87.8 Other disorders of electrolyte and fluid balance, not elsewhere classified; E83.42 Hypomagnesemia; J44.9 Chronic obstructive pulmonary disease, unspecified; Z79.899 Other long term (current) drug therapy; Z88.5 Allergy status to narcotic agent; Z91.040 Latex allergy status; Z90.710 Acquired absence of both cervix and uterus; Z98.890 Other specified postprocedural states